=== PATIENT | male | born 1990 | race Caucasian/White ===

== ENCOUNTER 2019-03-26 12:32 | Emergency (ER) | payer MEDICAID ==
[~2019-03-26] VITALS: Ht 167.6 cm; Wt 86.0 kg
[2019-03-26 12:47] VITALS: BP 139/66
[2019-03-26] MEDS ORDERED: LORazepam 1MG TABLET ONE (12:54)
[2019-03-26] MEDS ORDERED: LORazepam 1MG TABLET PO ONE (13:00)
[2019-03-26] MEDS ORDERED: METHADONE 10 MG TABLET PO ONE (13:00)
== END 2019-03-26 14:31 | disposition home or self-care (01) ==
LOC: ED 13:35
DX: F41.1 Generalized anxiety disorder (principal); F11.23 Opioid dependence with withdrawal
CPT/HCPCS: 99283

== ENCOUNTER 2019-04-02 00:18 | Emergency (ER) | payer MEDICAID ==
[~2019-04-02] VITALS: Ht 167.6 cm; Wt 87.0 kg
--- NOTE | 2019-04-02 00:24 | NUR ---
WHILST AWAITING A ROOM ASSIGNMENT PT SEEN GAGGING HIMSELF WITH HIS FINGERS IN ORDER TO MAKE HIMSELF VOMIT. "IT HELPS" RELIEVE HIS NAUSEA. PT DECLINED TO STOP GAGGING HIMSELF.
[2019-04-02] MEDS ORDERED: HALOPERIDOL 5 MG/ML IM ONE (01:30)
[2019-04-02] MEDS ORDERED: HALOPERIDOL 5 MG/ML ONE (01:39)
--- NOTE | 2019-04-02 01:43 | NUR ---
PT STATES "I NEED ATIVAN BUT I GUESS WE WILL TRY THIS AND SEE IF IT WORKS". PT MEDICATED PER EMAR. 5 RIGHTS ADDRESSED.
--- NOTE | 2019-04-02 01:50 | NUR ---
PT CAME TO NURSES STATION AND STATED "THE MEDICATIONS HELPED THE NAUSEA BUT I'M WILLING TO TRY OTHER OPTIONS". PT WAS ADVISED IT HAD ONLY BEEN A FEW MINUTES SINCE THE MEDICATIONS WERE ADMINISTERED AND HE SHOULD WAIT A LITTLE LONGER SO THE MEDICATIONS CAN TAKE AFFECT. PT AGREED AND WALKED BACK TO HIS ROOM
--- NOTE | 2019-04-02 02:02 | NUR ---
PT VISUALIZED ON [place] STICKING HIS FINGERS DOWN HIS THROAT TO GAG HIMSELF.
--- NOTE | 2019-04-02 02:07 | NUR ---
PT ASKING AGAIN FOR MORE MEDICATIONS, HE WAS REMINDED HE JUST RECEIVED HIS MEDICATIONS A FEW MINUTES AGO
[2019-04-02 02:25] LABS: BASOPHILS # (AUTO) 0.01 x10^3/uL (0-0.1); BASOPHILS % (AUTO) 0 % (0-1); EOSINOPHILS % (AUTO) 0 % (1-7); LYMPHOCYTES # (AUTO) 1.07 x10^3/uL (1-3.4); LYMPHOCYTES % (AUTO) 11 % (22-44); MD NO; MEAN CORPUSCULAR HEMOGLOBIN 31.6 pg (27.5-34.5); MEAN CORPUSCULAR HGB CONC 33.2 g/dL (33.2-36.2); MEAN CORPUSCULAR VOLUME 95.3 fL (81-97); MEAN PLATELET VOLUME 8.3 fL (7.4-10.4); MONOCYTES # (AUTO) 0.14 x10^3/uL (0.2-0.8); MONOCYTES % (AUTO) 2 % (2-9); NEUTROPHILS # (AUTO) 8.51 x10^3/uL (1.8-6.8); NEUTROPHILS % (AUTO) 87 % (42-75); PLATELET COUNT 274 x10^3/uL (130-400); RED BLOOD COUNT 5.01 x10^6/uL (4.38-5.82); RED CELL DISTRIBUTION WIDTH 13.4 % (9.4-14.8)
[2019-04-02 02:36] LABS: ALANINE AMINOTRANSFERASE 37 U/L (12-78); ALBUMIN 4.1 g/dL (3.4-5.0); ANION GAP 5 mmol/L (5-15); CALCIUM 9.1 mg/dL (8.5-10.1); CHLORIDE 111 mmol/L (98-107)
[2019-04-02 02:37] LABS: ALKALINE PHOSPHATASE 86 U/L (45-117); BILIRUBIN,TOTAL 0.5 mg/dL (0.2-1.0)
--- NOTE | 2019-04-02 02:59 | NUR ---
PT PACING ROOM
--- NOTE | 2019-04-02 03:19 | NUR ---
PT HAS [employer] HPN CALLED AND SPOKE DIANE FOR PSYCH EVAL
[2019-04-02] MEDS ORDERED: PROMETHAZINE 25 MG/ML, 1ML IM ONE (03:30)
[2019-04-02] MEDS ORDERED: PROMETHAZINE 25 MG/ML, 1ML ONE (03:49)
--- NOTE | 2019-04-02 03:59 | NUR ---
PT MEDICATED PER EMAR. 5 RIGHTS ADDRESSED.
[2019-04-02 04:07] LABS: AMPHETAMINE SCREEN, URINE Negative (Negative); BARBITURATE SCREEN, URINE Negative (Negative); BENZODIAZEPINE SCREEN, URINE Negative (Negative); CANNABINOID SCREEN, URINE Positive (Negative); COCAINE SCREEN, URINE Negative (Negative); METHADONE SCREEN, URINE Positive (Negative); OPIATE SCREEN, URINE Negative (Negative)
[2019-04-02] MEDS ORDERED: NICOTINE 14MG/24 HR PATCH.TD24 TD ONE (05:30)
--- NOTE | 2019-04-02 06:01 | NUR ---
PT SLEEPING, RESPIRATIONS EVEN AND UNLABORED. AWAITING [employer] H[employer] ASSESSORS COME AND ASSESS THE PT.
[2019-04-02] MEDS ORDERED: NICOTINE 14MG/24 HR PATCH.TD24 ONE (07:14)
--- NOTE | 2019-04-02 07:35 | NUR ---
REPORT RECIEVED FROM ANGELO. PATIENT RESTING IN BED, SNACK AND BLANKET PROVIDED.
[2019-04-02 07:43] VITALS: BP 138/83
--- NOTE | 2019-04-02 08:25 | NUR ---
SPOKE WITH SWALLOW FOR PHONE EVAL. PT CLEARED FOR PSYCH EVAL AND PLACEMENT. CHELE SHAM NOTIFIED.
[2019-04-02] MEDS ORDERED: LORazepam 2 MG/ML, 1ML IVPush ONE (08:30)
[2019-04-02] MEDS ORDERED: LORazepam 1MG TABLET PO ONE (09:00)
[2019-04-02] MEDS ORDERED: LORazepam 1MG TABLET ONE (09:02)
--- NOTE | 2019-04-02 10:19 | NUR ---
PACKET FAXED TO [facility], [facility] AND [facility]
--- NOTE | 2019-04-02 10:24 | NUR ---
PATIENT AWARE OF PSYCH REFERRAL. SAFETY PRECAUTIONS IN PLACE.
--- NOTE | 2019-04-02 10:47 | NUR ---
GHAZAL FROM [facility] CALLED TO ACCEPT PT. REPORT PROVIDED. PT AWARE.
--- NOTE | 2019-04-02 11:51 | NUR ---
RECEIVED REPORT FROM TERESSA PARDO. ASSUMING CARE AT THIS TIME. PT RESTING COMFORTABLY ON GURNEY. MONON. AWAITING TRANSPORT TO [facility].
--- NOTE | 2019-04-02 12:08 | NUR ---
PT DIET TRAY DELIVERED
--- NOTE | 2019-04-02 12:25 | NUR ---
EMILY HERE TO TAKE PT TO [facility]. 1 BAG BELONGINGS RETURNED TO PT. PT AMBULATED TO AMBULANCE WITH STEADY GAIT.
== END 2019-04-02 12:29 ==
LOC: ED 01:23
DX: F32.1 Major depressive disorder, single episode, moderate (principal); R11.2 Nausea with vomiting, unspecified; F11.10 Opioid abuse, uncomplicated
CPT/HCPCS: 36415; 80053; 80307; 83690; 85025; 96372; 99285; J1630; J2550

== ENCOUNTER 2019-04-29 11:53 | Emergency (ER) | payer MEDICAID ==
[~2019-04-29] VITALS: Ht 170.2 cm; Wt 80.0 kg
--- NOTE | 2019-04-29 12:30 | NUR ---
PT BIB EMS FROM [facility]. PER EMS, PATIENT PRESENTED TO [facility] FOR A MEDICATION REFILL. PATIENT STATES THAT ABOUT AN HOUR AND A HALF INTO THE PROCESS HE WANTED TO LEAVE TO TAKE CARE OF SOME PERSONAL BUSINESS AND COME BACK BUT HE BECAME UPSET AND WAS PUT ON A LEGAL HOLD BY [facility] STAFF FOR A SUICIDAL STATEMENT. PATIENT DENIES THAT HE MADE THIS STATEMENT. PSYCH KAY SALDANA, AT BEDSIDE ASSESSING PATIENT.
[2019-04-29 12:37] LABS: BASOPHILS # (AUTO) 0.07 x10^3/uL (0-0.1); BASOPHILS % (AUTO) 1 % (0-1); EOSINOPHILS # (AUTO) 0.02 x10^3/uL (0-0.4); EOSINOPHILS % (AUTO) 0 % (1-7); LYMPHOCYTES # (AUTO) 2.18 x10^3/uL (1-3.4); LYMPHOCYTES % (AUTO) 20 % (22-44); MD NO; MEAN CORPUSCULAR HEMOGLOBIN 30.9 pg (27.5-34.5); MEAN CORPUSCULAR HGB CONC 33.8 g/dL (33.2-36.2); MEAN CORPUSCULAR VOLUME 91.5 fL (81-97); MEAN PLATELET VOLUME 7.9 fL (7.4-10.4); MONOCYTES # (AUTO) 0.68 x10^3/uL (0.2-0.8); MONOCYTES % (AUTO) 6 % (2-9); NEUTROPHILS # (AUTO) 7.96 x10^3/uL (1.8-6.8); NEUTROPHILS % (AUTO) 73 % (42-75); PLATELET COUNT 337 x10^3/uL (130-400); RED CELL DISTRIBUTION WIDTH 12.7 % (9.4-14.8)
[2019-04-29 12:39] VITALS: BP 145/85
[2019-04-29 12:50] LABS: ALBUMIN 4.2 g/dL (3.4-5.0); ANION GAP 10 mmol/L (5-15); CALCIUM 9.1 mg/dL (8.5-10.1); CHLORIDE 110 mmol/L (98-107); CREATININE 1.06 mg/dL (0.7-1.3)
[2019-04-29 12:52] LABS: SALICYLATE LEVEL 1.9 mg/dL (2.8-20.0)
[2019-04-29] MEDS ORDERED: NICOTINE 21 MG/24 HR PATCH.TD24 TD PRN (13:00)
[2019-04-29] MEDS ORDERED: QUETIAPINE 25MG TABLET PO SCH (13:00)
[2019-04-29] MEDS ORDERED: HYDROXYZINE PAMOATE 50MG CAP PO PRN (13:00)
--- NOTE | 2019-04-29 13:12 | NUR ---
ALL BELONGINGS COLLECTED AND SECURED IN CABINET. URINE COLLECTED AND SENT TO LAB. FOOD TRAY ORDERED FOR PATIENT.
[2019-04-29] MEDS ORDERED: AMPH20CA7 PO (13:18)
[2019-04-29] MEDS ORDERED: CLON1TAB PO (13:19)
[2019-04-29] MEDS ORDERED: HYDR50CA PO (13:20)
[2019-04-29] MEDS ORDERED: LORA-446 PO (13:20)
[2019-04-29] MEDS ORDERED: [UNRECOGNIZED DRUG - CODE] PO (13:21)
[2019-04-29 13:32] LABS: AMPHETAMINE SCREEN, URINE Negative (Negative); BARBITURATE SCREEN, URINE Negative (Negative); BENZODIAZEPINE SCREEN, URINE Negative (Negative); CANNABINOID SCREEN, URINE Positive (Negative); COCAINE SCREEN, URINE Negative (Negative); METHADONE SCREEN, URINE Negative (Negative); OPIATE SCREEN, URINE Negative (Negative)
[2019-04-29] MEDS ORDERED: hydrOXyzine 50MG TABLET ONE (14:08)
[2019-04-29] MEDS ORDERED: QUETIAPINE 25MG TABLET ONE (14:08)
[2019-04-29] MEDS ORDERED: NICOTINE 21 MG/24 HR PATCH.TD24 ONE (14:09)
--- NOTE | 2019-04-29 14:35 | NUR ---
REPORT RECEIVED FROM EDVIN JIMÉNEZ. PT MEDICATED PER EMAR. RESTING ON MATTRESS ON FLOOR (PT STATES THIS IS MORE COMFORTABLE FOR HIM.) ALLEN IS STILL IN ROOM. PT IS REQUESTING PAIN MEDICATION. PSYCH COMPRESSOR MECHANIC AWARE, STATES HE WILL NOT BE RECEIVING ANY PAIN MEDICATION AT THIS TIME. PT AWARE OF POC. DENIES FURTHER NEEDS.
--- NOTE | 2019-04-29 15:27 | NUR ---
SPOKE WITH DERREK VILLANUEVA AND LET HIM KNOW PT IS STATING HE HAS "RESTLESS" LEGS AND WOULD LIKE TO BE MEDICATED WITH "[facility]" OR SOMETHING OF THE SORT. PT AGAIN ALERTED TO THE FACT HE WILL NOT RECEIVE PAIN MEDICATIONS. PT STATES HE IS AWARE. LES VILLANUEVA STATES HE WILL ORDER A MEDICATION.
[2019-04-29] MEDS ORDERED: BENZTROPINE 1 MG TABLET PO SCH (15:30)
[2019-04-29] MEDS ORDERED: BENZTROPINE 1 MG TABLET ONE (15:39)
--- NOTE | 2019-04-29 15:42 | NUR ---
PT MEDICATED PER EMAR. DENIES FURTHER NEEDS.
--- NOTE | 2019-04-29 16:24 | NUR ---
THROUGHPUT RN: PT PLACED ON LEGAL HOLD BY [facility]. SPOKE W/ VALENCIA FROM [facility] WHO STATES REFERRAL MUST BE SENT IN ORDER FOR THEM TO CONSIDER TAKING PT.
--- NOTE | 2019-04-29 16:31 | NUR ---
THROUGHPUT RN: PACKET FAXED TO [facility], [facility], [facility]
--- NOTE | 2019-04-29 16:34 | NUR ---
THROUGHPUT RN: PT REFUSED BY [facility].
--- NOTE | 2019-04-29 16:45 | NUR ---
DINNER TRAY ORDERED FOR PT. PT RESTING ON GURNEY. JORDAN. SITTER AT BEDSIDE. ROOM SECURE.
--- NOTE | 2019-04-29 17:11 | NUR ---
REPORT GIVEN TO EDVIN ROBERT AT [facility].
--- NOTE | 2019-04-29 17:39 | NUR ---
PT PROVIDED WITH 2 BAGS OF BELONGINGS. LEAVING VIA [facility] TO [facility] NOW.
[2019-04-29] MEDS ORDERED: QUETIAPINE 100MG TABLET PO SCH (21:00)
== END 2019-04-29 17:40 ==
LOC: ED 14:30
DX: F30.9 Manic episode, unspecified (principal); F17.200 Nicotine dependence, unspecified, uncomplicated; F41.1 Generalized anxiety disorder
CPT/HCPCS: 36415; 80048; 80307; 82040; 85025; 99285

== ENCOUNTER 2021-01-01 03:58 | Inpatient (IN) | payer MEDICAID ==
[~2021-01-01] VITALS: Ht 167.6 cm; Wt 91.1 kg
[2021-01-09 13:06] VITALS: BP 132/79
== END 2021-01-09 17:06 | DRG 683 ==
LOC: ED 08:43 → EDIP 14:40 → 3N 22:45
PROVIDERS: ADMIT Hospitalist; ATTEND Internal Medicine
DX: N17.9 Acute kidney failure, unspecified (principal); M62.82 Rhabdomyolysis; E87.2 Acidosis; E87.1 Hypo-osmolality and hyponatremia; E86.0 Dehydration; F31.9 Bipolar disorder, unspecified; F41.1 Generalized anxiety disorder; M79.7 Fibromyalgia; F29 Unspecified psychosis not due to a substance or known physiological condition; M41.9 Scoliosis, unspecified; F17.210 Nicotine dependence, cigarettes, uncomplicated; D72.829 Elevated white blood cell count, unspecified; F98.8 Other specified behavioral and emotional disorders with onset usually occurring in childhood and adolescence; F90.9 Attention-deficit hyperactivity disorder, unspecified type; G89.29 Other chronic pain; E66.9 Obesity, unspecified; F12.10 Cannabis abuse, uncomplicated; Z83.3 Family history of diabetes mellitus; Z59.0 Homelessness; Z68.32 Body mass index [BMI] 32.0-32.9, adult